=== PATIENT | male | born 1945 | race Caucasian/White ===

== ENCOUNTER → 2017-06-13 | Outpatient (REF) ==
[~2017-06-13] MED LIST: ASPIR-LOW81 MG PO; CRESTOR10 MG PO
[2017-06-13 19:00] LABS: PSA-TOTAL 1.03 ng/mL (0-4)
[2017-06-13 19:54] LABS: THYROID STIMULATING HORMONE 4.82 uIU/mL (0.465-4.680)
== END ==
LOC: ZLAB.WCH 18:11
PROVIDERS: Family Medicine
DX: Z01.89 Encounter for other specified special examinations (principal)
CPT/HCPCS: G0103

== ENCOUNTER → 2018-08-08 | Outpatient (REF) ==
[2018-08-08 14:23] LABS: BASO # 0.1 (0.0-0.2); BASO % 1.1 % (0.0-2.0); EOS # 0.2 (0.0-0.7); EOS % 3.5 % (0-4.0); GRAN # 3.3 (1.4-6.5); GRAN % 61.6 % (42.2-75.2); HEMATOCRIT 44.6 % (42.0-52.0); HEMOGLOBIN 14.7 g/dl (13.5-18.0); LYMPH # 1.3 (1.2-3.4); LYMPH % 24.1 % (20.0-51.0); MEAN CELL VOLUME 96 fl (80.0-100.0); MEAN CORPUSCULAR HEMOGLOBIN 32 pg (27.0-31.0); MEAN CORPUSCULAR HGB CONC 33 g/dl (33.0-37.0); MEAN PLATELET VOLUME 12.3 fl (7.4-10.4); MONO # 0.5 (0.1-0.6); MONO % 9.3 % (1.7-9.3); PLATELET COUNT 170 K/mm3 (130-400); RED BLOOD COUNT 4.63 M/mm3 (4.20-5.60); REDCELL DISTRIBUTION WIDTH-CV 13.1 % (11.5-14.5)
== END ==
LOC: ZLAB.WCH 14:10
PROVIDERS: Family Medicine
DX: Z01.89 Encounter for other specified special examinations (principal)